=== PATIENT | male | born 1955 | race Caucasian/White ===

== ENCOUNTER → 2016-12-19 | Outpatient (CLI) | payer BC ==
[~2016-12-19] MED LIST: ALBUAER2 INH; ALL180; ASTNS; GLUCOSAMINE PO; MOME50SP5; ZNTT/150 PO
[2016-12-19 11:38] LABS: URINE APPEARANCE CLEAR (CLEAR); URINE BILIRUBIN NEG (NEG); URINE COLOR YELLOW; URINE EPITHELIAL CELL AUTO 0-5 /lpf (0-5); URINE NITRITE NEG (NEG); URINE SPECIFIC GRAVITY 1.017 (1.000-1.030); UROBILINOGEN NEG (NEG)
[2016-12-19 11:43] LABS: MANUAL MICROSCOPIC REQUIRED? NO; REVIEW REQ? NO
== END | disposition home or self-care (01) ==
LOC: C.LABBC 08:50
PROVIDERS: ATTEND Internal Medicine
DX: R39.9 Unspecified symptoms and signs involving the genitourinary system (principal)

== ENCOUNTER → 2016-12-20 | Outpatient (CLI) | payer BC ==
[2016-12-20 09:56] LABS: CHOLESTEROL/HDL RATIO 2.5; PROSTATE SPECIFIC ANTIGEN 0.432 ng/ml (0.000-4.000)
== END | disposition home or self-care (01) ==
LOC: C.LAB 08:09
PROVIDERS: ATTEND Internal Medicine
DX: Z12.5 Encounter for screening for malignant neoplasm of prostate (principal)

== ENCOUNTER 2018-09-24 13:00 | Inpatient (IN) ==
[2018-09-24] MEDS ORDERED: PROCHLORPERAZINE 5 MG/ML 2 ML VIAL IV STA (13:33)
[2018-09-24] MEDS ORDERED: fentaNYL citrate 100 MCG/2 ML VIAL IV STA (13:34)
[2018-09-24] MEDS ORDERED: SODIUM CHLORIDE 0.9% 1000ML 1,000 ML IV SCH ×3 (13:45→19:09)
[2018-09-24 14:00] LABS: Basophils # (auto) 0.01 K/uL (0-0.2); Basophils % (auto) 0.1 %; Eosinophils # (auto) 0.92 K/uL (0-0.5); Eosinophils % (auto) 8.2 %; Hematocrit (blood only) 41.8 % (42-52); Hemoglobin 14.2 g/dL (14.0-18.0); Immature Granulocytes # (auto) 0.03 K/uL (0.00-0.02); Immature Granulocytes % (auto) 0.3 %; Lymphocytes # (auto) 0.91 K/uL (1.2-3.4); Lymphocytes % (auto) 8.1 %; Mean Corpuscular Volume 95.9 fL (80-100); Mean Platelet Volume 9.1 fL (7.4-10.4); Monocytes # (auto) 0.84 K/uL (0.11-0.59); Monocytes % (auto) 7.5 %; Neutrophils # (auto) 8.49 K/uL (1.4-6.5); Neutrophils % (auto) 75.8 %; Platelet Count 193 K/uL (130-400); RDW Coefficient of Variation 12.7 % (11.5-14.5); RDW Standard Deviation 44.5 fL (36.4-46.3); Red Blood Count 4.36 M/uL (4.7-6.1)
[2018-09-24] MEDS ORDERED: ONDANSETRON INJ 2 MG/ML 2 ML VIAL IV STA (14:17)
[2018-09-24] MEDS ORDERED: DiphenhydrAMINE HCL 50 MG/ML VIAL IV STA (14:17)
[2018-09-24 14:36] LABS: Albumin Globulin Ratio 1.1 (0.9-2); Albumin Level 4.2 gm/dl (3.4-5.0); Bilirubin,Total 0.7 mg/dl (0.2-1); Calcium 8.8 mg/dl (8.5-10.1); Creatinine Clr Calc Pharmacy 67.1 ml/min; Est GFR (Non-African American) 72.5; Globulin 3.9 gm/dl (2.5-4.0); Potassium 3.9 mmol/L (3.5-5.1); Total Protein 8.1 gm/dl (6.4-8.2)
[2018-09-24] MEDS ORDERED: cefOXitin 2,000 MG in DEXTROSE 5% 50 ML IV ONE (16:00)
[2018-09-24] MEDS ORDERED: BUPIVACAINE 0.5 % 5 MG/1 ML MPF 30ML VIAL ONE (16:02)
--- NOTE | 2018-09-24 16:07 | History & Physical Report ---
Date of Service September 24, 2018 Assessment & Plan (1) Abscess, perirectal: pt with perirectal abscess- difficult to see externally but Rt ant/ lat distal rectum- fluid collection 3-4 cm long for incision/ drainage perirectal abscess 1-2 days in hospital History of Present Illness Primary Care Provider: Reyes Copeland MD pt with perirectal abscess- recent Nausea/ vomiting on pain meds and po cipro/ flagyl Allergies Allergy/AdvReac Type Severity Reaction Status Date / Time clavulanic acid AdvReac Gastrointestinal Verified 09/24/18 02:25 [From Augmentin] Upset Home Medications Home Medications Medication Instructions Recorded Confirmed Type fexofenadine 180 mg tablet 180 mg PO QAM tab 09/18/18 09/24/18 History omeprazole 20 mg capsule,delayed 20 mg PO QAM #30 cap 09/18/18 09/24/18 History release ciprofloxacin HCl [Cipro] 500 mg PO BID #20 tab 09/24/18 09/24/18 Rx metronidazole [Flagyl] 500 mg PO TID #30 tab 09/24/18 09/24/18 Rx mometasone [Nasonex] 2 spray INTRANASAL DAILY 09/24/18 09/24/18 History oxycodone 5 - 10 mg PO Q6H #10 tab 09/24/18 09/24/18 Rx ranitidine HCl [Zantac] 150 mg PO QAM 09/24/18 09/24/18 History Past Med/Surg History Medical History Dysuria (Acute) No pertinent family history Surgical History No pertinent past surgical history Family History Father COPD (chronic obstructive pulmonary disease) Mother Hypertension Sister Rheumatic heart disease Hypertension Atrial fibrillation Brother Actinic keratosis Social History Preferred Language: Tunisian Feels Safe at Home: Yes Smoking Status: Never smoker Review of Systems All systems reviewed & are unremarkable except as noted in HPI & below Physical Exam Constitutional: well developed and well nourished; no acute distress Respiratory: normal respiratory effort; no respiratory distress and no labored breathing Cardiovascular: Rate/Rhythm: regular rate and regular rhythm Gastrointestinal (Abdomen): Inspection/Auscultation: abdomen normal to inspection; abdomen not distended Percussion/Palpation: abdomen soft Skin: no rashes Psychiatric: Orientation: alert Results & Data Vital Signs (Past 12 Hours) Vital Signs Temp Pulse Pulse Resp BP BP Pulse Ox 09/24/18 15:01 59 L 20 123/65 96 09/24/18 13:05 36.6 C 61 16 135/[address] scan
--- NOTE | 2018-09-24 16:19 | Anesthesiology Consultation ---
Date of Service September 24, 2018 Assessment & Plan Chart Review Chart Review: Acceptable Risk for Surgery Consults Requested none History Surgery Operation Date: 09/24/18 10:20 Proposed Procedures p Incision and Drainage Shi Rectal Abscess - Arian Hodgson MD, FACS Height/Weight Height: 5 ft 11 in Weight: 68.9 kg Allergies Allergy/AdvReac Type Severity Reaction Status Date / Time clavulanic acid AdvReac Gastrointestinal Verified 09/24/18 02:25 [From Augmentin] Upset Medications Home Medications Medication Instructions Recorded Confirmed Last Taken fexofenadine 180 mg tablet 180 mg PO QAM tab 09/18/18 09/24/18 09/23/18 omeprazole 20 mg capsule,delayed 20 mg PO QAM #30 cap 09/18/18 09/24/18 09/23/18 release ciprofloxacin HCl [Cipro] 500 mg PO BID #20 tab 09/24/18 09/24/18 09/23/18 metronidazole [Flagyl] 500 mg PO TID #30 tab 09/24/18 09/24/18 09/23/18 mometasone [Nasonex] 2 spray INTRANASAL DAILY 09/24/18 09/24/18 09/23/18 oxycodone 5 - 10 mg PO Q6H #10 tab 09/24/18 09/24/18 09/23/18 ranitidine HCl [Zantac] 150 mg PO QAM 09/24/18 09/24/18 09/23/18 Active Medications Generic Name Dose Route Start Last Admin Trade Name Freq PRN Reason Stop Dose Admin Sodium Chloride 1,000 mls @ 125 mls/hr 09/24/18 14:30 09/24/18 15:12 Nss 1000ml IV 10/24/18 14:29 125 mls/hr .Q8H CHRISTIANO Administration Past Medical History Medical History Dysuria (Acute) No pertinent family history Past Family History Family History Father COPD (chronic obstructive pulmonary disease) Mother Hypertension Sister Rheumatic heart disease Hypertension Atrial fibrillation Brother Actinic keratosis Past Surgical History Surgical History No pertinent past surgical history Social History Smoking Status: Never smoker Physical Exam Vital Signs Last Vital Signs Temp 36.6 C 09/24/18 13:05 Pulse 58 L 09/24/18 16:09 Resp 20 09/24/18 16:09 BP 125/74 09/24/18 16:09 Pulse Ox 98 09/24/18 16:09 Testing Laboratory Results 09/24/18 13:41 09/24/18 13:41
[2018-09-24] MEDS ORDERED: fentaNYL citrate 100 MCG/2 ML VIAL ONE ×3 (16:23→17:59)
[2018-09-24] MEDS ORDERED: MIDAZOLAM HCL 1 MG/ML 2ML VIAL ONE (16:23)
[2018-09-24] MEDS ORDERED: LIDOCAINE HCL 2% 2 ML VIAL/AMP(20MG/ML) INFIL ONE (16:59)
[2018-09-24] MEDS ORDERED: SUCCINYLCHOLINE CHLORIDE 20 MG/ML 10 ML VIAL ONE (16:59)
[2018-09-24] MEDS ORDERED: PROPOFOL IV EMULSION 10 MG/ML 20 ML VIAL IV ONE (16:59)
[2018-09-24] MEDS ORDERED: ROCURONIUM BROMIDE 10 MG/ML 5 ML VIAL ONE (16:59)
[2018-09-24] MEDS ORDERED: ONDANSETRON INJ 2 MG/ML 2 ML VIAL ONE (16:59)
--- NOTE | 2018-09-24 17:15 | Operative Report ---
Post Operative Report Pre & Post Diagnosis Operation Date: 09/24/18 10:20 <No data on this case meets the specified criteria> perirectal abscess Procedure Operation Date: 09/24/18 10:20 <No data on this case meets the specified criteria> incision , drainage, culture perirectal abscess Surgeon Arian Hodgson MD, FACS Transport Conductor nurses Estimated Blood Loss 10 Findings Consistent with Post-Op Diagnosis Specimens purulent fluid Description of Procedure see dictation I attest to the content of the Intraoperative Record and any orders documented therein. Any exceptions are noted below.
[2018-09-24] MEDS ORDERED: ACETAMINOPHEN 1,000 MG/100 ML VIAL IV ONE (17:16)
[2018-09-24] MEDS ORDERED: cefOXitin 2,000 MG in DEXTROSE 5% 50 ML IV STA (17:36)
[2018-09-24] MEDS ORDERED: HYDROmorphone INJ 2 MG/ML SYR/VIAL IV PRN (17:58)
[2018-09-24] MEDS ORDERED: ePHEDrine sulfate 50 MG/ML AMP IV PRN (17:58)
[2018-09-24] MEDS ORDERED: DEXAMETHASONE SOD INJ 4 MG/ML VIAL IV PRN (17:58)
[2018-09-24] MEDS ORDERED: ATROPINE SULFATE 0.1 MG/ML 10ML SYR IV PRN (17:58)
[2018-09-24] MEDS ORDERED: fentaNYL citrate 100 MCG/2 ML VIAL IV PRN (17:58)
[2018-09-24] MEDS ORDERED: DEXAMETHASONE SOD INJ 4 MG/ML VIAL ONE (17:59)
--- NOTE | 2018-09-24 18:04 | Anesthesiology Progress Note ---
Date of Service September 24, 2018 Anesthesia Post Procedure Vital Signs Vital Signs: Temp Pulse Pulse Pulse Resp BP BP 09/24/18 17:50 74 16 135/85 09/24/18 17:40 69 15 135/87 09/24/18 17:31 36.8 C 70 16 132/80 09/24/18 16:26 36.7 C 65 16 135/79 09/24/18 16:09 58 L 20 125/74 09/24/18 15:01 59 L 20 123/65 09/24/18 13:05 36.6 C 61 16 135/82 Pulse Ox 09/24/18 17:50 100 09/24/18 17:40 100 09/24/18 17:31 100 09/24/18 16:26 100 09/24/18 16:09 98 09/24/18 15:01 96 09/24/18 13:05 100 Pain Intensity Rectal: Pain Intensity: 6 Transfer of Care Handoff Completed per policy Notes Mental Status: alert / awake / arousable and participated in evaluation Patient Amnestic to Procedure: Yes Nausea / Vomiting: adequately controlled Pain: adequately controlled Airway Patency, RR, SpO2: stable & adequate BP & HR: stable & adequate Hydration State: stable & adequate Anesthetic Complications: no major complications apparent
--- NOTE | 2018-09-24 18:18 | Anesthesiology Progress Note ---
Date of Service September 24, 2018 Anesthesia Post Procedure Vital Signs Vital Signs: Temp Pulse Pulse Pulse Resp BP BP 09/24/18 18:10 37 C 59 L 12 131/81 09/24/18 18:00 67 14 150/82 H 09/24/18 17:50 74 16 135/85 09/24/18 17:40 69 15 135/87 09/24/18 17:31 36.8 C 70 16 132/80 09/24/18 16:26 36.7 C 65 16 135/79 09/24/18 16:09 58 L 20 125/74 09/24/18 15:01 59 L 20 123/65 09/24/18 13:05 36.6 C 61 16 135/82 Pulse Ox 09/24/18 18:10 100 09/24/18 18:00 96 09/24/18 17:50 100 09/24/18 17:40 100 09/24/18 17:31 100 09/24/18 16:26 100 09/24/18 16:09 98 09/24/18 15:01 96 09/24/18 13:05 100 Pain Intensity Rectal: Pain Intensity: 4 Transfer of Care Handoff Completed per policy Notes Mental Status: alert / awake / arousable and participated in evaluation Patient Amnestic to Procedure: Yes Nausea / Vomiting: adequately controlled Pain: adequately controlled Airway Patency, RR, SpO2: stable & adequate BP & HR: stable & adequate Hydration State: stable & adequate Anesthetic Complications: no major complications apparent
[2018-09-24] MEDS ORDERED: PROMETHAZINE HCL 12.5 MG in SODIUM CHLORIDE 0.9% 50 ML IV STA (18:37)
[2018-09-24] MEDS ORDERED: PROMETHAZINE HCL 25 MG in SODIUM CHLORIDE 0.9% 50 ML IV PRN (19:09)
[2018-09-24] MEDS ORDERED: TRAMADOL HCL 50 MG TABLET PO PRN (19:09)
[2018-09-24] MEDS ORDERED: HYDROmorphone INJ 0.5 MG/0.5 ML SYR IV PRN (19:09)
[2018-09-24] MEDS ORDERED: PROMETHAZINE HCL 12.5 MG in SODIUM CHLORIDE 0.9% 50 ML IV PRN (19:09)
[2018-09-24] MEDS ORDERED: ONDANSETRON INJ 2 MG/ML 2 ML VIAL IV PRN (19:09)
[2018-09-24] MEDS ORDERED: HYDROmorphone INJ 1 MG/ML SYRINGE IV PRN (19:09)
[2018-09-24] MEDS ORDERED: CIPROFLOXACIN 400 MG/200 ML BAG IV SCH (19:30)
--- NOTE | 2018-09-24 20:09 | Emergency Department Note ---
Entered by Eliezer Holcomb acting as a scribe for Alis Rod MD History of Present Illness General Chief complaint: Rectal Pain Stated complaint: RECTAL ABCESS,NAUSEA Source: patient History of Present Illness Onset (ago): hour(s) (midnight) Location: buttocks (rectal) Pain Consistency: + constant Maximum Pain Intensity: 9 Quality: + other (rectal pain) Relieved By: not by medication (Zofran) Associated symptoms: + headaches and + nausea/vomiting The patient is a 63 year old male who presents to the Emergency Room with complaints of intermittent vomiting and constant rectal pain. The patient reports that he woke up at midnight with severe rectal pain. He came to the ER and states that there was an anal abscess found. He was given a dose of Flagyl and Cipro while in the ER and was discharged with the antibiotics and with oxycodone. He reports that he was also given Fentanyl and Morphine while in the ER. He states I dont do well with those drugs or antibiotics, and since his discharge he has vomited about 5 times. He states that he was nauseous when he c henry to the ER at midnight but had not vomited until after he left. He reports that there was no improvement with Zofran, and he has been unable to take the oxycodone due to his nausea. The patient rates his rectal pain at 9/10. He also reports a headache that he rates 8/10. The patient states that he has had anal fissures in the past. Home Medications Home Medications Medication Instructions Recorded Confirmed Type fexofenadine 180 mg tablet 180 mg PO QAM tab 09/18/18 09/24/18 History omeprazole 20 mg capsule,delayed 20 mg PO QAM #30 cap 09/18/18 09/24/18 History release ciprofloxacin HCl [Cipro] 500 mg PO BID #20 tab 09/24/18 09/24/18 Rx metronidazole [Flagyl] 500 mg PO TID #30 tab 09/24/18 09/24/18 Rx mometasone [Nasonex] 2 spray INTRANASAL DAILY 09/24/18 09/24/18 History ranitidine HCl [Zantac] 150 mg PO QAM 09/24/18 09/24/18 History tramadol 50 - 100 mg PO Q6H PRN #20 tab 09/26/18 Rx Allergies Allergy/AdvReac Type Severity Reaction Status Date / Time mushroom Allergy Verified 09/25/18 09:22 clavulanic acid AdvReac Gastrointestinal Verified 09/24/18 02:25 [From Augmentin] Upset Past Med/Surg History Medical History Dysuria (Acute) No pertinent family history Surgical History No pertinent past surgical history Family History Father COPD (chronic obstructive pulmonary disease) Mother Hypertension Sister Rheumatic heart disease Hypertension Atrial fibrillation Brother Actinic keratosis Social History Preferred Language: Montenegrin Communication Ability: Effective Beliefs That Will Affect Care: None Current Living Situation: Significant Other Feels Safe at Home: Yes Smoking Status: Never smoker Hx Alcohol Use: No Hx Substance Use: No Review of Systems See HPI for pertinent positives & negatives. and A total of 10 systems reviewed and were otherwise negative Physical Exam Vital Signs Vital Signs - 24 hr 09/24/18 13:05 09/24/18 13:33 09/24/18 15:01 Temperature 36.6 C Temperature Source Oral Sepsis Recent Fever Within 48 Hours No Sepsis New/Unexplained Change in Mental Status No Sepsis Action Taken by Nursing No Action Required Pulse Rate 61 Pulse Rate [Right Finger] 59 L Pulse Rhythm [Right Finger] Pulse Strength [Right Finger] Respiratory Rate 16 20 Respiratory Effort / Characteristics Non-Labored Spontaneous Respiratory Depth Blood Pressure 135/82 Blood Pressure [Left Arm] 123/65 Blood Pressure Mean 99 Blood Pressure Mean [Left Arm] 84 Blood Pressure Position Sitting Blood Pressure Position [Left Arm] Pulse Oximetry 100 96 Oxygen Delivery Method Room Air Room Air Room Air 09/24/18 16:09 09/24/18 16:26 Temperature 36.7 C Temperature Source Oral Sepsis Recent Fever Within 48 Hours Sepsis New/Unexplained Change in Mental Status Sepsis Action Taken by Nursing Pulse Rate 58 L Pulse Rate [Right Finger] 65 Pulse Rhythm [Right Finger] Regular Pulse Strength [Right Finger] Normal Respiratory Rate 20 16 Respiratory Effort / Characteristics Non-Labored Respiratory Depth Normal Blood Pressure 125/74 Blood Pressure [Left Arm] 135/79 Blood Pressure Mean Blood Pressure Mean [Left Arm] 97 Blood Pressure Position Blood Pressure Position [Left Arm] Semi-fowlers Pulse Oximetry 98 100 Oxygen Delivery Method Room Air Room Air Vital signs reviewed. General: Older male who appears to be in some discomfort and is vomiting.. HEENT: No scleral icterus, PERRLA, neck supple. Atraumatic. Cardiovascular: Regular rate and rhythm, no extra sounds. Pulmonary: Clear to auscultation bilaterally, normal work of breathing. Abdomen: Soft, nontender, nondistended, positive bowel sounds. Rectal: There is tenderness to palpation at the 9 o'clock position. No significant swelling or erythema. Musculoskeletal: Atraumatic, no peripheral edema. Neurologic: Patient awake alert and oriented x 3 Skin: Warm, dry, no rash Course 1331: The patient was evaluated in room A4B. A complete history and physical examination were performed. 1530: I consulted Iván Parker PA-C: General Surgery. The patient will be evaluated. 1552: I consulted Dr. Hodgson General Surgery. The patient will be taken to the OR. Administered Medications Discontinued Medications Bupivacaine HCl (Marcaine 0.5% Mpf) Confirm Administered Dose 30 ml .ROUTE .STK- MED ONE Stop: 09/24/18 16:03 Last Admin: 09/24/18 17:39 Dose: 1 ml Documented by: [id number] Ciprofloxacin (Cipro) 500 mg PO BID [facility] Stop: 10/05/18 08:59 Last Admin: 09/26/18 08:25 Dose: 500 mg Documented by: [id number] Admin: 09/25/18 20:46 Dose: 500 mg Documented by: [id number] Admin: 09/25/18 07:34 Dose: 500 mg Documented by: [id number] Dexamethasone (Decadron) Confirm Administered Dose 8 mg .ROUTE .STK-MED ONE Stop: 09/24/18 18:00 Last Admin: 09/24/18 20:15 Dose: Not Given Documented by: [id number] Dexamethasone (Decadron) 8 mg IV ONCE PRN PRN Reason: PACU Use Only-Nausea/Vomiting Stop: 09/24/18 22:59 Last Admin: 09/24/18 18:05 Dose: 8 mg Documented by: [id number] Diphenhydramine HCl (Benadryl) 25 mg IV NOW STA Stop: 09/24/18 14:18 Last Admin: 09/24/18 14:22 Dose: 25 mg Documented by: [id number] Fentanyl Citrate (Fentanyl Citrate) 100 mcg IV NOW STA Stop: 09/24/18 13:35 Last Admin: 09/24/18 14:00 Dose: 100 mcg Documented by: [id number] Fentanyl Citrate (Fentanyl Citrate) Confirm Administered Dose 100 mcg .ROUTE .STK-MED ONE Stop: 09/24/18 17:50 Last Increment: 09/24/18 17:55 Dose: 50 mcg Documented by: [id number] Increment: 09/24/18 17:50 Dose: 50 mcg Documented by: [id number] Fentanyl Citrate (Fentanyl Citrate) Confirm Administered Dose 100 mcg .ROUTE .STK-MED ONE Stop: 09/24/18 18:00 Last Admin: 09/24/18 20:15 Dose: Not Given Documented by: [id number] Sodium Chloride (Nss 1000ml) 1,000 mls @ 999 mls/hr IV .Q1H1M [facility] Stop: 09/24/18 14:45 Last Infusion: 09/24/18 15:04 Dose: 0 mls/hr Documented by: [id number] Admin: 09/24/18 13:55 Dose: 999 mls/hr Documented by: [id number] Sodium Chloride (Nss 1000ml) 1,000 mls @ 125 mls/hr IV .Q8H [facility] Stop: 10/24/18 14:29 Last Infusion: 09/24/18 22:44 Dose: 0 mls/hr Documented by: [id number] Admin: 09/24/18 15:12 Dose: 125 mls/hr Documented by: [id number] Cefoxitin Sodium 2,000 mg/ (Dextrose) 60 mls @ 100 mls/hr IV NOW ONE Stop: 09/24/18 16:35 Last Infusion: 09/24/18 20:17 Dose: 0 mls/hr Documented by: [id number] Admin: 09/24/18 17:00 Dose: 100 mls/hr Documented by: [id number] Acetaminophen (Ofirmev) 1,000 mg in 100 mls @ 400 mls/hr IV NOW ONE Stop: 09/24/18 17:30 Last Infusion: 09/24/18 20:17 Dose: 0 mls/hr Documented by: [id number] Admin: 09/24/18 17:46 Dose: 400 mls/hr Documented by: [id number] Promethazine HCl 12.5 mg/ (Sodium Chloride) 50.5 mls @ 202 mls/hr IV NOW STA Stop: 09/24/18 18:51 Last Infusion: 09/24/18 20:18 Dose: 0 mls/hr Documented by: [id number] Admin: 09/24/18 18:48 Dose: 202 mls/hr Documented by: [id number] Ciprofloxacin (Cipro) 400 mg in 200 mls @ 100 mls/hr IV Q12@0800,2000 CHRISTIANO; Protocol Stop: 10/04/18 19:29 Last Infusion: 09/24/18 22:24 Dose: 0 mls/hr Documented by: [id number] Admin: 09/24/18 20:24 Dose: 100 mls/hr Documented by: [id number] Metronidazole (Flagyl) 500 mg in 100 mls @ 100 mls/hr IV Q8@0400,1200,2000 CHRISTIANO; Protocol Stop: 10/04/18 19:29 Last Infusion: 09/25/18 05:38 Dose: 0 mls/hr Documented by: [id number] Admin: 09/25/18 04:36 Dose: 100 mls/hr Documented by: [id number] Infusion: 09/24/18 21:24 Dose: 0 mls/hr Documented by: [id number] Admin: 09/24/18 20:24 Dose: 100 mls/hr Documented by: [id number] Sodium Chloride (Nss 1000ml) 1,000 mls @ 80 mls/hr IV .[id number] CHRISTIANO Stop: 10/24/18 19:08 Last Infusion: 09/25/18 08:30 Dose: 0 mls/hr Documented by: [id number] Infusion: 09/25/18 05:38 Dose: 80 mls/hr Documented by: [id number] Infusion: 09/25/18 04:36 Dose: 0 mls/hr Documented by: [id number] Infusion: 09/24/18 21:24 Dose: 80 mls/hr Documented by: [id number] Infusion: 09/24/18 20:24 Dose: 0 mls/hr Documented by: [id number] Admin: 09/24/18 19:33 Dose: 80 mls/hr Documented by: [id number] Ibuprofen (Motrin) 600 mg PO Q6H PRN PRN Reason: Pain Stop: 10/24/18 19:08 Last Admin: 09/25/18 20:45 Dose: 600 mg Documented by: [id number] Admin: 09/25/18 07:38 Dose: 600 mg Documented by: [id number] Metronidazole (Flagyl) 500 mg PO TID [facility] Stop: 10/05/18 08:59 Last Admin: 09/26/18 08:25 Dose: 500 mg Documented by: [id number] Admin: 09/25/18 20:47 Dose: 500 mg Documented by: [id number] Admin: 09/25/18 13:17 Dose: 500 mg Documented by: [id number] Admin: 09/25/18 07:34 Dose: 500 mg Documented by: [id number] Ondansetron HCl (Zofran) 4 mg IV NOW STA Stop: 09/24/18 14:18 Last Admin: 09/24/18 14:22 Dose: 4 mg Documented by: [id number] Pantoprazole Sodium (Protonix) 40 mg PO QAM [facility]; Protocol Stop: 10/25/18 08:59 Last Admin: 09/26/18 08:25 Dose: 40 mg Documented by: [id number] Admin: 09/25/18 07:35 Dose: 40 mg Documented by: [id number] Prochlorperazine (Compazine) 10 mg IV NOW STA Stop: 09/24/18 13:34 Last Admin: 09/24/18 14:00 Dose: 10 mg Documented by: [id number] Psyllium Hydrophilic Mucilloid (Metamucil) 1 pkt PO QAM [facility] Stop: 10/25/18 08:59 Last Admin: 09/26/18 08:26 Dose: 1 pkt Documented by: [id number] Admin: 09/25/18 07:35 Dose: 1 pkt Documented by: [id number] Ranitidine HCl (Zantac) 150 mg PO HS [facility] Stop: 10/25/18 20:59 Last Admin: 09/25/18 20:47 Dose: 150 mg Documented by: [id number] Senna/Docusate Sodium (Senokot S) 1 tab PO BID [facility] Stop: 10/24/18 20:59 Last Admin: 09/26/18 08:25 Dose: 1 tab Documented by: [id number] Admin: 09/25/18 20:46 Dose: 1 tab Documented by: [id number] Admin: 09/25/18 07:35 Dose: 1 tab Documented by: [id number] Admin: 09/24/18 20:33 Dose: Not Given Documented by: [id number] Medical Decision Making Differential Diagnosis Differential diagnosis includes: gastroenteritis, food borne illness, infections, appendicitis, diverticulitis, inflammatory bowel disease, obstruction, GI bleed, biliary pathology, as well as others were entertained. Medical Records Attestation: I reviewed the patient's medical records. Home Medications Current Medication List: was personally reviewed by me Laboratory Data Attestation: I reviewed the patient's lab results. Result diagrams: 09/25/18 08:33 09/25/18 08:33 Lab Results 09/24/18 09/24/18 09/24/18 Range/Units 13:41 13:41 13:41 WBC 11.20 H (4.8-10.8) K/uL RBC 4.36 L (4.7-6.1) M/uL Hgb 14.2 (14.0-18.0) g/dL Hct 41.8 L (42-52) % MCV 95.9 (80-100) fL MCH 32.6 (25-34) pg MCHC 34.0 (32-36) g/dL RDW Std Deviation 44.5 (36.4-46.3) fL RDW Coeff of Paulino 12.7 (11.5-14.5) % Plt Count 193 (130-400) K/uL MPV 9.1 (7.4-10.4) fL Immature Gran % (Auto) 0.3 % Neut % (Auto) 75.8 % Lymph % (Auto) 8.1 % Menard % (Auto) 7.5 % Eos % (Auto) 8.2 % Baso % (Auto) 0.1 % Immature Gran # (Auto) 0.03 H (0.00-0.02) K/uL Neut # (Auto) 8.49 H (1.4-6.5) K/uL Lymph # (Auto) 0.91 L (1.2-3.4) K/uL Menard # (Auto) 0.84 H (0.11-0.59) K/uL Eos # (Auto) 0.92 H (0-0.5) K/uL Baso # (Auto) 0.01 (0-0.2) K/uL Sodium 136 (136-145) mmol/L Potassium 3.9 (3.5-5.1) mmol/L Chloride 104 (98-107) mmol/L Carbon Dioxide 27 (21-32) mmol/L Anion Gap 5.0 (3-11) BUN 17 (7-18) mg/dl Creatinine 1.07 (0.6-1.4) mg/dl Est Cr Clr Drug Dosing 67.1 ml/min Est GFR ( Amer) 84.0 Est GFR (Non-Af Amer) 72.5 BUN/Creatinine Ratio 16.0 (10-20) Glucose 114 H (70-99) mg/dl Calcium 8.8 (8.5-10.1) mg/dl Total Bilirubin 0.7 (0.2-1) mg/dl AST 18 (15-37) U/L ALT 22 (12-78) U/L Alkaline Phosphatase 65 (45-117) U/L Total Protein 8.1 (6.4-8.2) gm/dl Albumin 4.2 (3.4-5.0) gm/dl Globulin 3.9 (2.5-4.0) gm/dl Albumin/Globulin Ratio 1.1 (0.9-2) Lipase 118 (73-393) U/L Specimen Hemolysis Hepatitis C Ab Screen Neg (Neg) ECG Data Attestation: I personally reviewed and interpreted this ECG as follows: Indication: vomiting Rate (beats per minute): 58 Rhythm: sinus bradycardia Findings: + other (T-wave abnormality in the inferior leads); no PAC and no PVC Blood Pressure Blood Pressure Findings: Normal blood pressure Blood Pressure Disposition: did not require urgent referral MDM Narrative This pt was evaluated and appeared to be in no distress. IV access was obtained and lab work was drawn. Pt was placed on the potline monitor. Pt was given IV compazine, benadryl and fentanyl for his discomforts. Records were reviewed and general surgery was contacted. Pt required additional zofran for nausea. Dr Hodgson evaluated the pt in the ED and took him to the OR for definitive management. Pt was aware of the plan and agreed. Impression & Plan Perirectal abscess, Vomiting Discharge Plan Visit Data *Final* Discharge Date/Time: 09/24/18 16:09 Chief Complaint: Rectal Pain Stated Complaint: RECTAL ABCESS,NAUSEA ED Provider: Alis Rod Discharge Problem: Perirectal abscess, Vomiting Patient Disposition: Admitted As Inpatient Discharge Instructions Interventions: ED Discharge Assessment Last Done: 09/24/18 16:09 Discharge Problem: Vomiting Qualifiers: Vomiting type: unspecified Vomiting Intractability: non-intractable Nausea presence: with nausea Qualified Code(s): R11.2 - Nausea with vomiting, unspecified The scribe's documentation has been prepared under my direction and personally reviewed by me in its entirety. I confirm that the note above accurately reflects all work, treatment, procedures, and medical decision making performed by me.
[2018-09-24] MEDS: metroNIDAZOLE 500 MG/100 ML BAG IV SCH (20:24)
[2018-09-24] MEDS: DOCUSATE SODIUM/SENNA 50/8.6MG TAB PO SCH (20:33)
--- NOTE | 2018-09-25 02:33 | Operative Report ---
DATE OF OPERATION: 09/24/2018 DATE OF OPERATION: 09/24/2018 NAME OF OPERATION: Incision, drainage and culture of perirectal abscess. PREOPERATIVE DIAGNOSIS: Perirectal abscess. POSTOPERATIVE DIAGNOSIS: Perirectal abscess. STAFF SURGEON: Arian Hodgson MD ANESTHESIA: General. PROCEDURE: The patient was brought in the operating room and placed on the operating table in supine position, then into the lithotomy position. His perianal area was prepped and draped in the usual fashion. Hackett catheter in place with a very large amount of urine output. Initially, needle was used to localize the abscess which was up inside the anal verge, relatively high. I aspirated several mL of pus and sent it for culture. At this point, I opened the site through the anoderm, skin and dilated the cavity, placed a Gilbert drain, secured using 2-0 chromic suture. Dressing applied and patient transferred to recovery room in stable condition. I attest to the content of the Intraoperative Record and any orders documented therein. Any exception s are noted below.
[2018-09-25] MEDS: metroNIDAZOLE 500 MG/100 ML BAG IV SCH (04:36)
--- NOTE | 2018-09-25 06:48 | Progress Note ---
Date of Service September 25, 2018 Assessment & Plan (1) Perirectal abscess: minimal pain- taking no pain meds. tolerating IV Cipro/ flagyl Try po pain meds and advance diet. Monitor pain control probable d/c tomorrow Subjective see a/p Results & Data Vital Signs (Past 12 Hours) Vital Signs Temp Pulse Pulse Pulse Resp BP Pulse Ox 09/25/18 03:40 36.6 C 52 L 14 91/38 L 97 09/24/18 23:41 36.4 C L 52 L 14 92/45 L 95 09/24/18 21:03 36.9 C 59 L 17 109/65 100 09/24/18 20:06 36.5 C 59 L 17 116/69 59 L 09/24/18 19:30 36.6 C 54 L 17 126/75 100 09/24/18 19:18 36.7 C 56 L 12 135/85 98 09/24/18 19:00 36.7 C 55 L 18 135/85 99 09/24/18 18:50 37.0 C 55 L 16 136/77 100
[2018-09-25] MEDS: CIPROFLOXACIN 500 MG TAB PO SCH ×2 (07:34→20:46)
[2018-09-25] MEDS: metroNIDAZOLE 500 MG TAB PO SCH ×3 (07:34→20:47)
[2018-09-25] MEDS: DOCUSATE SODIUM/SENNA 50/8.6MG TAB PO SCH ×2 (07:35→20:46)
[2018-09-25] MEDS: PANTOprazole 40 MG TAB PO SCH (07:35)
[2018-09-25] MEDS: PSYLLIUM 58.6% POWDER PACKET PO SCH (07:35)
[2018-09-25] MEDS: IBUPROFEN 600 MG TAB PO PRN ×2 (07:38→20:45)
[2018-09-25 08:45] LABS: Hematocrit (blood only) 40.4 % (42-52); Hemoglobin 13.9 g/dL (14.0-18.0); Mean Corpuscular Hgb Conc 34.4 g/dL (32-36); Mean Corpuscular Volume 97.1 fL (80-100); Mean Platelet Volume 8.9 fL (7.4-10.4); Platelet Count 205 K/uL (130-400); RDW Coefficient of Variation 12.7 % (11.5-14.5); RDW Standard Deviation 44.8 fL (36.4-46.3); Red Blood Count 4.16 M/uL (4.7-6.1); White Blood Count 10.69 K/uL (4.8-10.8)
[2018-09-25 09:09] LABS: Albumin Level 3.4 gm/dl (3.4-5.0); BUN Creatinine Ratio 13.4 (10-20); Calcium 9.1 mg/dl (8.5-10.1); Creatinine Clr Calc Pharmacy 75.2 ml/min; Est GFR (Non-African American) 76.8; Potassium 4.3 mmol/L (3.5-5.1)
[2018-09-25 09:13] LABS: Albumin Globulin Ratio 0.9 (0.9-2); Bilirubin,Total 0.6 mg/dl (0.2-1); Globulin 3.7 gm/dl (2.5-4.0); Total Protein 7.1 gm/dl (6.4-8.2)
--- NOTE | 2018-09-25 12:36 | Hospitalist Consultation ---
Date of Consultation September 25, 2018 Assessment & Plan (1) Perirectal abscess: s/p I&D perirectal abscess 09/[address] Hodgson bowel regimen, pain control, dvt proph per primary (2) GERD (gastroesophageal reflux disease): Resume ranitidine and ppi per surgery Thank you for involving us in this patient's care, hospitalists will sign off at this point. Please call if you have any questions. History of Present Illness Attending Physician: Arian Hodgson MD, [facility] History of Present Illness Mr. Mathew is feeling much better than when he was admitted. He has not complaints Pmhx: GERD, seasonal allergies, migraine Social: lives with partner, never smoker, rare alcohol Family hx: father with COPD, mother living, 96 years old without chronic issues Allergies Allergy/AdvReac Type Severity Reaction Status Date / Time mushroom Allergy Verified 09/25/18 09:22 clavulanic acid AdvReac Gastrointestinal Verified 09/24/18 02:25 [From Augmentin] Upset Home Medications Home Medications Medication Instructions Recorded Confirmed Type fexofenadine 180 mg tablet 180 mg PO QAM tab 09/18/18 09/24/18 History omeprazole 20 mg capsule,delayed 20 mg PO QAM #30 cap 09/18/18 09/24/18 History release ciprofloxacin HCl [Cipro] 500 mg PO BID #20 tab 09/24/18 09/24/18 Rx metronidazole [Flagyl] 500 mg PO TID #30 tab 09/24/18 09/24/18 Rx mometasone [Nasonex] 2 spray INTRANASAL DAILY 09/24/18 09/24/18 History oxycodone 5 - 10 mg PO Q6H #10 tab 09/24/18 09/24/18 Rx ranitidine HCl [Zantac] 150 mg PO QAM 09/24/18 09/24/18 History Patient History Medical History Dysuria (Acute) No pertinent family history Surgical History No pertinent past surgical history Family History Father COPD (chronic obstructive pulmonary disease) Mother Hypertension Sister Rheumatic heart disease Hypertension Atrial fibrillation Brother Actinic keratosis Social History Preferred Language: Faroese Communication Ability: Effective Lokie Engineer Required: No Beliefs That Will Affect Care: None Current Living Situation: Significant Other Other Information That Helps Us Care for You: No Feels Safe at Home: Yes Smoking Status: Never smoker Hx Alcohol Use: No Hx Substance Use: No Review of Systems Review of Systems: All systems reviewed & are unremarkable except as noted in HPI & below Physical Exam Physical Exam: General: no distress Eyes: normal inspection, PERLL Respiratory: chest non tender, clear to auscultation, normal breath sounds, no respiratory distress, no accessory muscle use Cardiac: regular rate and rhythm, no rub or gallop, no murmur, no edema, no jvd GI/: active bowel sounds, no abd pain or tenderness, soft, non distended Extremities: normal range of motion, normal strength, non tender Neuro:oriented x 3, moves all extremities Psych: alert, normal mood and affect Skin: normal color, dry Results & Data Vital Signs (Past 12 Hours) Vital Signs Temp Pulse Resp BP Pulse Ox 09/25/18 10:47 36.5 C 57 L 16 125/75 100 09/25/18 07:45 36.5 C 59 L 18 117/69 100 09/25/18 03:40 36.6 C 52 L 14 91/38 L 97 PG Care Time/CCT Total # of Minutes Spent Total Time Spent with Patient: Total time spent is greater than 50% in coordination of care (as documented) at patient's floor/unit and/or counseling patient:
[2018-09-26] MEDS: DOCUSATE SODIUM/SENNA 50/8.6MG TAB PO SCH (08:25)
[2018-09-26] MEDS: CIPROFLOXACIN 500 MG TAB PO SCH (08:25)
[2018-09-26] MEDS: metroNIDAZOLE 500 MG TAB PO SCH (08:25)
[2018-09-26] MEDS: PANTOprazole 40 MG TAB PO SCH (08:25)
[2018-09-26] MEDS: PSYLLIUM 58.6% POWDER PACKET PO SCH (08:26)
--- NOTE | 2018-09-29 11:20 | Discharge Summary ---
Date of Service September 29, 2018 Admission HPI Per Admitting Provider pt with perirectal abscess- recent Nausea/ vomiting on pain meds and po cipro/ flagyl Principal Diagnosis Perirectal abscess Discharge Data Allergies Allergy/AdvReac Type Severity Reaction Status Date / Time mushroom Allergy Verified 09/25/18 09:22 clavulanic acid AdvReac Gastrointestinal Verified 09/24/18 02:25 [From Augmentin] Upset Consultations 09/24/18 15:49 ED Decision to Admit Stat 09/24/18 15:57 Consult Hospitalist Stat Procedures Performed Operation Date: 09/24/18 10:20 Actual Procedures p Incision and Drainage Renetta Rectal Abscess(Not Applicable) - Arian Hodgson MD, FACS Hospital Course (1) Perirectal abscess: 63 y/o male returned to the ED for the second time in 24 hours with perirectal pain and now nausea and vomiting from oral meds. He was taken to the operating room that evening for I&D of renetta-rectal abscess and transferred to the surgical floor for continued IV antibiotics. His diet was advanced the next day and he was able to tolerate po analgesics. He was stable for discharge on POD 2 on oral antibiotics and with cristiano drain to be removed in the office. Total Time Total Time Spent Total Time Spent (In Minutes): 15 Discharge Plan Discharge Items Patient Disposition: Home - Self-Care Reason For Visit: PERIRECTAL ABSCESS Discharge Diagnosis: perirectal abscess, nausea/ vomiting Discharge Goals: Decrease discomfort, Improve disease control and Improve function Activity: As commented below Activity Comment: light activity for 1 week Lifting: No more than 25 pounds Bathing Comment: may shower and soak in tub Sexual Activity: When tolerated Exercise Comment: wait 1 week Driving/Machine Use: No limitations Non-emergency contact: Primary Care Provider and Surgeon Call non-emergency contact if: your pain is not controlled, your temperature is above 101 and your wound has increased drainage Follow-up/Referrals: Reyes Copeland MD [Primary Care Provider] - Diet: Regular Addtl Provider Instructions: SPECIAL CARE INSTRUCTIONS: * Cover incisions and change daily for comfort/drainage. You will have drainage 1-2 weeks * If drain comes out , do not worry- leave out Avoid constipation- May use Metamucil daily and -- * May Use Senokot S and Milk of Magnesium twice daily as directed on the package * May use ibuprofen for pain as tolerated. * Expect some swelling and bruising. Call your doctor if: * Temperature above 101 degrees * Pain not relieved by pain medicine ordered * There is increased drainage or redness from any incision * You have any unanswered questions or concerns [phone]. FOLLOW UP VISIT: If not already scheduled, please call the office for a follow-up visit. OFFICE PHONE NUMBER: Dr. Hodgson Office for next week- drain removal Prescriptions: New tramadol 50 mg tablet 50 - 100 mg PO Q6H PRN (Reason: pain) Qty: 20 RF: 0 Continued omeprazole 20 mg capsule,delayed release(DR/EC) 20 mg PO QAM Qty: 30 RF: 0 fexofenadine 180 mg tablet 180 mg PO QAM RF: 0 ranitidine HCl [Zantac] 150 mg Tablet 150 mg PO QAM RF: 0 mometasone [Nasonex] 50 mcg/actuation [place],Non-Aerosol 2 spray INTRANASAL DAILY RF: 0 metronidazole [Flagyl] 500 mg tablet 500 mg PO TID Qty: 30 RF: 0 ciprofloxacin HCl [Cipro] 500 mg tablet 500 mg PO BID Qty: 20 RF: 0 Discontinued oxycodone 5 mg tablet 5 - 10 mg PO Q6H Qty: 10 RF: 0 Stand-Alone Forms: [facility] Discharge Orders: Discharge Order (Routine); Ordered 09/26/18 Ordered By: Arian Hodgson Admission Data Admit Date/Time: 09/24/18 17:16 Attending Provider: Arian Hodgson Admit Provider: Arian Hodgson Primary Care Provider: Reyes Copeland Other Providers: Arian Hodgson ; Shashank Garcia ; Yadira Shelby ; Chemo Puentes ; Arian Schmitt ; Halina Carty ; Jason Vigil ; Joe Avalos ; Carlton Gomez ; Vijaya Shukla ; Ramila Muller ; Rae Winn ; Jay Jay Brock ; Sofy Fabian ; Chris Cheema ; Juice Hinojosa ; Chele English ; Faina Bahena ; Madeleine Copeland ; Bj Harris ; Manuel Alonzo ; Santosh Rivers ; Kim Larios ; Milo Granda Service: Surgical Services Other Interventions: Discharge Summary Assessment (RN) Last Done: 09/26/18 08:13 DC Date/Time DO NOT enter until pt leaves facility: 09/26/18 08:57
== END 2018-09-26 08:57 | disposition home or self-care (01) | DRG 395 ==
LOC: ED 13:00 → OR 16:09 → 3W 17:16